=== PATIENT | female | born 1955 | race Two or more races ===

== ENCOUNTER 2019-05-17 09:32 | Outpatient (CLI) | payer OTHER | END 2019-05-17 09:35 | disposition home or self-care (01) | LOC: SONOGRAMA 09:32 | DX: E04.2 Nontoxic multinodular goiter (principal); R22.9 Localized swelling, mass and lump, unspecified; J31.0 Chronic rhinitis; J41.0 Simple chronic bronchitis ==

== ENCOUNTER 2023-04-28 08:17 | Outpatient (CLI) | payer OTHER | END 2023-04-28 08:20 | disposition home or self-care (01) | LOC: SONOGRAMA 08:17 | PROVIDERS: ATTEND Pathology Anatomic Pathology & Clinical Pathology | DX: D34 Benign neoplasm of thyroid gland (principal); E04.9 Nontoxic goiter, unspecified ==

== ENCOUNTER 2024-05-21 08:29 | Outpatient (CLI) | payer OTHER | END 2024-05-21 08:32 | disposition home or self-care (01) | LOC: SONOGRAMA 08:29 | PROVIDERS: ATTEND Pathology Anatomic Pathology & Clinical Pathology | DX: D34 Benign neoplasm of thyroid gland (principal); E07.9 Disorder of thyroid, unspecified; E04.2 Nontoxic multinodular goiter ==